=== PATIENT | female | born 1970 | race Caucasian/White ===

== ENCOUNTER 2017-06-07 15:39 | Emergency (ER) | payer OTHER | END 2017-06-07 20:08 | disposition home or self-care (01) | LOC: M ED 15:39 | DX: Z04.1 Encounter for examination and observation following transport accident (principal); S80.02XA Contusion of left knee, initial encounter; V44.5XXA Car driver injured in collision with heavy transport vehicle or bus in traffic accident, initial encounter; Y92.488 Other paved roadways as the place of occurrence of the external cause; K21.9 Gastro-esophageal reflux disease without esophagitis; F17.210 Nicotine dependence, cigarettes, uncomplicated; Z79.899 Other long term (current) drug therapy; Z98.890 Other specified postprocedural states; Z88.5 Allergy status to narcotic agent | CPT/HCPCS: 73564 ==